=== PATIENT | male | born 1955 | race Two or more races ===

== ENCOUNTER 2025-06-21 14:39 | Outpatient (REF) | payer OTHER, SELFPAY ==
--- OUTSIDE RECORDS SUMMARY | 2025-06-21 17:52 | XMS_ITS | Clinical Summary ---
Author Organization [facility] Address [address] [place] [address] Phone Care Team Providers Care Terrestrial Ecologist Name Role Phone Jarrett Hanson MD Primary Care Provider [phone] Allergies No known active allergies Surgical History Surgery Date Site/Laterality Comments HERNIA REPAIR PROCEDURE: [place] REPAIR FIRST ABDOMINAL WALL HERNIA Medical History Medical History Date Comments Hypothyroid DX:Hypothyroid Family History Medical History Relation Name Comments Other: heart attack Father Other: old age Mother Relation Name Status Comments Father Mother Social History Tobacco Use Types Packs/Day Years Used Date Smoking Tobacco: Never Smokeless Tobacco: Never Alcohol Use Standard Drinks/Week Comments Never 0 (1 standard drink = 0.6 oz pur e alcohol) Sex and Gender Information Value Date Recorded Sex Assigned at Not on file Legal Sex Male 12:54 PM EST Gender Identity Not on file Sexual Orientation Not on file Obstetrics History Last Filed Vital Signs Vital Sign Reading Time Taken Comments Blood Pressure 128/81 12/05/2024 6:45 PM EST Pulse 80 12/05/2024 6:45 PM EST Temperature 36.3 C (97.3 F) 12/05/2024 6:45 PM EST Respiratory Rate 16 12/05/2024 6:45 PM EST Oxygen Saturation 97% 12/05/2024 6:45 PM EST Inhaled Oxygen Concentration - - Weight 77.1 kg (170 lb) 12/05/2024 6:45 PM EST Height 167.6 cm (5' 6 ) 12/05/2024 6:45 PM EST Body Mass Index 27.44 12/05/2024 6:45 PM EST Plan of Treatment Health Maintenance Due Date Last Done Comments Zoster Vaccines (2 of 3) 03/17/2017 01/20/2017 Abdominal Aortic Aneurysm (AAA) Screen 09/09/2022 Cholesterol Screening (Lipid Panel) 09/09/2022 Colorectal Cancer Screening: Colonoscopy 09/09/2022 Falls Risk Assessment 09/09/2022 Hepatitis C Screening 09/09/2022 Social Influencers of Health Screening 09/09/2022 Depression Screening 10/12/2024 Hypertension/CHF/CAD Annual BMP Blood Test 12/06/2024 COVID-19 Vaccine ( - 2024- season) 2025 10/22/2021, 03/29/2021, 03/08/2021 Influenza Vaccine (#1) 2025 3, 11/16/2014, 07/19/2013, Additional history exists DTaP,Tdap,and Td Vaccines (3 - Td or Tdap) 01/20/2027 01/20/2017, 10/15/2006 RSV Immunization Adult Patients (1 - 1-dose 75+ series) 2030 Pneumococcal Vaccine: 50+ Years Completed 11/03/2022, 02/26/2021 HIB Vaccines Aged Out No longer eligi ble based on patient's age to complete this topic HPV Vaccines Aged Out No longer eligi ble based on patient's age to complete this topic Hepatitis A Vaccines Aged Out No long er eligible based on patient's age to complete this topic Hepatitis B Vaccines Aged Out No long er eligible based on patient's age to complete this topic IPV Vaccines Aged Out No longer eligi ble based on patient's age to complete this topic MMR Vaccines Aged Out No longer eligi ble based on patient's age to complete this topic Meningococcal ACWY Vaccine Aged Out N o longer eligible based on patient's age to complete this topic Meningococcal B Vaccine Aged Out No l onger eligible based on patient's age to complete this topic RSV Immunization Patients Under 20 months Aged Out No longer eligible based on patient's age to complete this topic Varicella Vaccines Aged Out No longer eligible based on patient's age to complete this topic Care Teams Terrestrial Ecologist Relationship Specialty Start Date End Date Jarrett Hanson MD [address] [place] [phone] PCP - General 10/26/23
== END 2025-06-21 14:40 | disposition home or self-care (01) ==
LOC: HO.SH 14:39
PROVIDERS: Visit Provider Internal Medicine
DX: Z01.118 Encounter for examination of ears and hearing with other abnormal findings (principal); H90.3 Sensorineural hearing loss, bilateral
CPT/HCPCS: 92557; 92567